=== PATIENT | male | born 1970 | race Hispanic/Latino ===

== ENCOUNTER 2017-04-01 11:27 | Observation (INO) | payer MEDICAID, SELFPAY ==
[2017-04-01 12:22] LABS: #Eosinphils 0.2 thou/uL (0.0-0.7); #Lymphocytes 1.2 thou/uL (1.20-3.40); #Monocytes 0.3 thou/uL (0.11-0.59); #Neutrophils 1.5 thou/uL (1.40-6.50); %Basophils 1.2 % (0.0-1.0); %Eosinophils 5.5 % (0.0-10.0); %Lymphocytes 37.7 % (21.0-51.0); %Monocytes 9.6 % (0.0-10.0); Hematocrit 19.4 % (42.0-52.0); Mean Platelet Volume 8.1 fL (7.4-10.4); Red Blood Cell (RBC) Count 2.02 mill/uL (4.70-6.10); White Blood Cell (WBC) Count 3.3 thou/uL (4.8-10.8)
[2017-04-01 12:34] LABS: ALT (SGPT) 55 U/L (8-55); AST (SGOT) 26 U/L (5-34); Alkaline Phosphatase 70 U/L (40-150); Anion Gap 28 mmol/L (10-20); Bilirubin, Total 0.6 mg/dL (0.2-1.2); Calcium 6.5 mg/dL (7.8-10.44); Carbon Dioxide 12 mmol/L (22-29); Chloride 98 mmol/L (98-107); Globulin 2.7 g/dL (2.4-3.5); Protein, Total 6.8 g/dL (6.0-8.3)
[2017-04-01 12:46] LABS: BUN (Urea Nitrogen) 141 mg/dL (8.9-20.6)
[2017-04-01 13:05] LABS: Calc. Creatinine Clearance 0 mL/min (70-130); Estimated GFR-MDRD 2
--- NOTE | 2017-04-01 15:47 | HP ---
PRIMARY CARE PHYSICIAN: Cat Yin M.D. REASON FOR ADMISSION: Uremia. HISTORY OF PRESENT ILLNESS: A 47-year-old male who has end-stage renal disease secondary t o focal segmental glomerulosclerosis, who is requiring dialysis, but unfortunately he is not able to get dialysis because of his immigrant status. He comes periodically in our emergency room to get d ialysis. At this time, he came to the ER after 20 days of his last dialysis. He complains of tingl ing and numbness sensation in his both feet. He feels nausea. He does feel pruritus and some poor appetite. He denies any chest pain or palpitation. He denies any shortness of breath. He is on ro om air in the emergency room. In the emergency room, he is hemodynamically stable. He came today b ecause he was feeling that he will need the dialysis. His last dialysis in our hospital was on 03/10/2017. REVIEW OF SYSTEMS: The following complete review of systems was negative, unless otherwise mentione d in the HPI or below: Constitutional: Weight loss or gain, ability to conduct usual activities. Skin: Rash, itching. Eyes: Double vision, pain. ENT/Mouth: Nose bleeding, neck stiffness, pain, tenderness. Cardiovascular: Palpitations, dyspnea on exertion, orthopnea. Respiratory: Shortness of breath, wheezing, cough, hemoptysis, fever or night sweats. Gastrointestinal: Poor appetite, abdominal pain, heartburn, nausea, vomiting, constipation, or diar hermelinda. Genitourinary: Urgency, frequency, dysuria, nocturia. Musculoskeletal: Pain, swelling. Neurologic/Psychiatric: Anxiety, depression. Allergy/Immunologic: Skin rash, bleeding tendency. Please see my HPI for pertinent positives and negatives. All other review of systems reviewed and n egative except as mentioned in the HPI. EMERGENCY ROOM COURSE: Reviewed. PAST MEDICAL HISTORY: End-stage renal disease, on hemodialysis, focal segmental glomerulosclerosis, dialysis noncompliance due to financial reasons, hypertension, history of enterococcal bacteremia s econdary to infected dialysis catheter, anemia of renal disease, pancytopenia, and secondary hyperpa rathyroidism of renal origin. PAST SURGICAL HISTORY: Hemodialysis catheter placement, kidney biopsy, hemodialysis catheter remova l due to infection and AV fistula. PAST PSYCHIATRIC HISTORY: Reviewed and negative. ALLERGIES: VANCOMYCIN. FAMILY HISTORY: No strong family history of premature coronary artery disease, stroke or cancer. N o family history of ESRD. SOCIAL HISTORY: The patient lives by himself at home. No history of tobacco, alcohol or illicit dr ug abuse. CURRENT HOME MEDICATIONS: Amlodipine 5 mg p.o. daily, Tums 1 gram p.o. q.i.d., ferrous sulfate 325 mg p.o. daily, and Nephro-Nika one tablet p.o. daily. PHYSICAL EXAMINATION: VITAL SIGNS: Currently, blood pressure 159/92, pulse 70, respiratory rate 18, temperature 97.6, and saturation 99% on room air, weight 65.3 kilograms. GENERAL: The patient is currently alert and awake, no obvious acute distress. HEENT: Head: Normocephalic and atraumatic. Eyes: Pupils round and reactive to light. Extraocula r muscles are intact. ENT: Oropharynx within normal limits. Moist mucous membranes. No oral lesi ons. No pharyngeal erythema, no exudates. NECK: Supple. Range of motion is normal. No meningeal signs of irritation. LUNGS: Clear to auscultation without any rhonchi or rales. CARDIAC: S1, S2 regular without any murmur. ABDOMEN: Soft, bowel sounds present, nontender, nondistended. No organomegaly, no mass, no suprapu bic tenderness. BACK: Unremarkable, no CVA tenderness. EXTREMITIES: Upper extremity passive movements of all joints are normal, dialysis shunt in the righ t forearm with good thrill and bruit. Lower extremity, no edema. Good peripheral pulsation. The p atient does have subjective numbness feeling in both lower extremities, especially in the ankle demarcus on. NEUROLOGIC: Nonfocal examination. Speech normal. The patient moves all 4 limbs. Plantar bilatera l flexor. SKIN: No skin rash. PSYCHIATRIC: Normal affect. HEMATOLOGICAL SYSTEM: No lymphadenopathy. SIGNIFICANT LABS: 1. EKG based on my review normal sinus rhythm within normal limits. 2. CBC: WBC 3.3, hemoglobin 6.9, and platelet 113. MCV is 95.8. BMP: Sodium 133, potassium 5.2, chloride 98, carbon dioxide 12, anion gap 28, BUN 141, creatinine greater than 25, glucose 92, and calcium 6.5. 3. LFT: AST 26, ALT 55, alkaline phosphatase 70, albumin 4.1. ASSESSMENT AND PLAN: 1. Uremia. 2. Elevated anion gap metabolic acidosis due to renal failure. 3. Mild hyponatremia and mild hyperkalemia due to end-stage renal disease. 4. Pancytopenia. 5. Severe anemia. 6. Hypertension. 7. End-stage renal disease on hemodialysis. 8. Focal segmental glomerulosclerosis. 9. Noncompliance with dialysis treatment because of financial reason. PLAN: Observation to medical floor. The patient will need blood transfusion with dialysis today. We will repeat CBC, renal function test tomorrow. We will give him PhosLo 1334 mg p.o. 3 times lala y while in hospital. We will continue amlodipine 5 mg p.o. daily, Nephro-Nika one tablet p.o. daily . This patient will need more frequent dialysis, deep venous thrombosis prophylaxis not needed. Ga strointestinal prophylaxis. Protonix 40 mg p.o. daily. The patient will need Procrit with dialysis . Regarding his peripheral neuropathy symptoms, I will start gabapentin 100 mg p.o. daily. Deep venous thrombosis prophylaxis not needed because we are expecting discharge in 24 hours. Gastr ointestinal prophylaxis, Protonix 40 mg p.o. daily. CODE STATUS: The patient is FULL CODE. Disposition plan after dialysis today and tomorrow, the patient will be discharged home. This patie nt will need more frequent dialysis than he is getting at this point.
[2017-04-01] MEDS ORDERED: Loratadine 10 MG TAB PO PRN (17:01)
[2017-04-01] MEDS ORDERED: Zolpidem Tartrate 5 MG TAB PO PRN (17:01)
[2017-04-01] MEDS ORDERED: Loperamide HCl 2 MG CAP PO PRN (17:01)
[2017-04-01] MEDS ORDERED: Acetaminophen 325 MG TAB PO PRN (17:01)
[2017-04-01] MEDS ORDERED: Artificial Tear Sol 15 ML BOT EA EYE PRN (17:01)
[2017-04-01] MEDS ORDERED: Diabetic Tussin 200 MG/10 ML UDCUP PO PRN (17:01)
[2017-04-01] MEDS ORDERED: Mag-Al 1200 mg/1200 mg/30 ML UDCUP PO PRN (17:01)
[2017-04-01] MEDS ORDERED: Sodium Chloride 0.65% Nasal 44 ML BOT EA NARE PRN (17:01)
[2017-04-01] MEDS ORDERED: Ondansetron HCl/PF 4 MG/2 ML Vial IVP PRN (17:01)
[2017-04-01] MEDS ORDERED: Ondansetron ODT 4 MG TAB PO PRN (17:01)
[2017-04-01] MEDS ORDERED: Senokot 8.6 MG TAB PO PRN (17:01)
[2017-04-01] MEDS ORDERED: Eucerin (Mineral Oil/Petrolatum,White) 30 gm Jar TOP PRN (17:01)
[2017-04-01] MEDS ORDERED: Milk Of Magnesia 30 ML UDCUP PO PRN (17:01)
[2017-04-01] MEDS ORDERED: Epoetin (ESRD) 10,000 UNITS/ML VIAL SC SCH (18:00)
[2017-04-01] MEDS ORDERED: FLU VACC QS2017-18 36 mo. & older 0.5 ML SYRINGE IM ONE (18:15)
[2017-04-01 18:20] VITALS: BMI 21.7
[2017-04-01] MEDS: Calcium Acetate 667 MG CAP PO SCH (18:24)
[2017-04-02 05:53] LABS: #Eosinphils 0.1 thou/uL (0.0-0.7); #Monocytes 0.3 thou/uL (0.11-0.59); #Neutrophils 1.7 thou/uL (1.40-6.50); %Basophils 0.7 % (0.0-1.0); %Eosinophils 4.6 % (0.0-10.0); %Lymphocytes 32.8 % (21.0-51.0); %Monocytes 9.3 % (0.0-10.0); Mean Platelet Volume 7.7 fL (7.4-10.4); Red Blood Cell (RBC) Count 2.69 mill/uL (4.70-6.10); White Blood Cell (WBC) Count 3.2 thou/uL (4.8-10.8)
[2017-04-02 06:36] LABS: Anion Gap 19 mmol/L (10-20); BUN (Urea Nitrogen) 57 mg/dL (8.9-20.6); BUN/Creatinine Ratio 3.82; Calc. Creatinine Clearance 6 mL/min (70-130); Calcium 7.9 mg/dL (7.8-10.44); Carbon Dioxide 24 mmol/L (22-29); Chloride 97 mmol/L (98-107); Estimated GFR-MDRD 4; Phosphorus 7.7 mg/dL (2.3-4.7)
[2017-04-02] MEDS ORDERED: Ferrous Sulfate 325 MG TAB PO SCH (08:00)
[2017-04-02] MEDS ORDERED: Folic Acid/Vit B Comp W-C PO SCH (09:00)
[2017-04-02] MEDS ORDERED: FLU VACC QS2017-18 36 mo. & older 0.5 ML SYRINGE IM ONE (09:00)
[2017-04-02] MEDS ORDERED: Gabapentin 100 MG CAP PO SCH (09:00)
[2017-04-02 11:15] VITALS: BP 133/93; TEMP 98.9
[2017-04-02] MEDS: Calcium Acetate 667 MG CAP PO SCH ×2 (11:40→11:44)
--- NOTE | 2017-04-02 15:04 | DIS ---
DATE OF ADMISSION: 04/01/2017 DATE OF DISCHARGE: 04/02/2017 CONDITION AT THE TIME OF DISCHARGE: Stable and improved. DISCHARGE DIAGNOSES: 1. Uremia. 2. Acute on chronic kidney insufficiency due to missed hemodialysis. 3. End-stage renal disease, on hemodialysis with noncompliance due to financial reason. 4. History of focal segmental glomerulosclerosis. 5. Hypertension. 6. History of enterococcal bacteremia due to infected dialysis catheter. 7. Anemia of chronic kidney disease. 8. Pancytopenia secondary to chronic kidney disease. 9. Secondary hyperparathyroidism of renal origin. PRIMARY CARE PHYSICIAN: Cat Yin M.D. PROCEDURES DONE IN THE HOSPITAL: 1. Hemodialysis back to back yesterday and today. 2. Transfusion of 1 unit of packed RBC. CONSULTATIONS: Nephrology, Joe Canela M.D. DISCHARGE MEDICATIONS: Folic acid daily, ferrous sulfate 325 mg daily, calcium carbonate 1000 mg q. i.d., amlodipine 5 mg daily, Neurontin 100 mg daily, and PhosLo t.i.d. ADMISSION HISTORY: Mr. Leon is a very pleasant 47-year-old male who comes to the emergency room on a repeated basis to get dialyzed when his symptoms are worse. He has end-stage renal disease and i s unfunded, and is unfortunately not on scheduled dialysis. This time, also he presented with compl aints of worsening weakness, leg cramps, numbness and tingling of his feet and poor appetite. He wa s hemodynamically stable at presentation; however, had florid uremia with BUN 141, creatinine greate r than 25, hemoglobin of 6.9 and platelet count of 113. His potassium was also elevated at 5.2. He also had elevated anion gap metabolic acidosis due to acute kidney insufficiency. He was admitted under observation status for emergent hemodialysis. He was restarted on his home medications and bl ood transfusion was ordered for him with dialysis upon admission. Please see admission history and physical for further details. HOSPITAL COURSE: Mr. Leon had back to back dialysis yesterday and this morning. He is feeling muc h better and is hemodynamically stable and is back to his baseline. I have instructed him to come t o the emergency room more frequently; otherwise, it will be fatal to wait for this man. At this jimmy e, he understands the situation and he will be discharged home today. Prescriptions were provided a s Neurontin was a new medication for him. I am not sure if he will be able to afford them or not. He is once again educated about compliance. At this time, I have seen and examined the patient prior to discharge. PHYSICAL EXAMINATION: VITAL SIGNS: Include temperature 98.9, pulse of 83, respirations 18, saturating 99% on room air and blood pressure 133/93. GENERAL: No acute distress. Awake, alert and oriented x3. CHEST: Clear to auscultation without any wheezing, rales or rhonchi. Rhythm and regular without an y murmur, rubs or gallops. ABDOMEN: Soft, nontender and nondistended with positive bowel sounds. EXTREMITIES: Free of any cyanosis, clubbing or edema. LABORATORY DATA: CBC shows WBC at 3.2; hemoglobin 8.8, which was 6.9 on presentation and platelet c ount of 118, which was 113 on presentation. His serum creatinine has improved to 14.9 prior to dial ysis. He has had one hour of dialysis after these labs. At this time, he is stable and will be discharged home and will return to the ER in the next 7-10 da ys. He is once again encouraged [place] hemod[place], but he is once again deferred at this time.
== END 2017-04-02 15:10 | disposition home or self-care (01) ==
LOC: ERS 11:27 → ONC 14:51
PROVIDERS: ADMIT Internal Medicine; ATTEND Internal Medicine
DX: N17.9 Acute kidney failure, unspecified (principal); I12.0 Hypertensive chronic kidney disease with stage 5 chronic kidney disease or end stage renal disease; N18.6 End stage renal disease; D63.1 Anemia in chronic kidney disease; N25.81 Secondary hyperparathyroidism of renal origin; Z88.8 Allergy status to other drugs, medicaments and biological substances; Z79.899 Other long term (current) drug therapy; Z91.15 Patient's noncompliance with renal dialysis; Z99.2 Dependence on renal dialysis
CPT/HCPCS: 36415; 36430; 80053; 80069; 85025; 86850; 86900; 86901; 87340; 90471; 90682; 90935; 93005; G0008; G0257; G0378; P9016; Q0162; Q2036; Q4081

== ENCOUNTER 2017-05-12 09:14 | Inpatient (IN) | payer MEDICAID, SELFPAY ==
[2017-05-12 09:51] LABS: #Eosinphils 0.3 thou/uL (0.0-0.7); #Lymphocytes 1.2 thou/uL (1.20-3.40); #Monocytes 0.2 thou/uL (0.11-0.59); %Basophils 1.3 % (0.0-1.0); %Eosinophils 6.9 % (0.0-10.0); %Lymphocytes 31.4 % (21.0-51.0); %Monocytes 5.8 % (0.0-10.0); Hematocrit 20.5 % (42.0-52.0); Mean Platelet Volume 7.5 fL (7.4-10.4); Red Blood Cell (RBC) Count 2.09 mill/uL (4.70-6.10); White Blood Cell (WBC) Count 3.7 thou/uL (4.8-10.8)
[2017-05-12] MEDS ORDERED: Heparin 10,000 UNITS/ 10 ML VIAL ONE (10:00)
[2017-05-12 10:12] LABS: ALT (SGPT) 15 U/L (8-55); AST (SGOT) 10 U/L (5-34); Alkaline Phosphatase 73 U/L (40-150); Anion Gap 29 mmol/L (10-20); BUN (Urea Nitrogen) 123 mg/dL (8.9-20.6); Bilirubin, Total 0.6 mg/dL (0.2-1.2); CK (CPK) 174 U/L (30-200); Calc. Creatinine Clearance 0 mL/min (70-130); Calcium 8.1 mg/dL (7.8-10.44); Carbon Dioxide 15 mmol/L (22-29); Chloride 99 mmol/L (98-107); Estimated GFR-MDRD 2; Globulin 2.9 g/dL (2.4-3.5); Lipase 83 U/L (8-78)
[2017-05-12 10:16] LABS: Troponin I 0.021 ng/mL (< 0.028)
--- NOTE | 2017-05-12 10:21 | RAD ---
PORTABLE UPRIGHT FRONTAL CHEST RADIOGRAPH: DATE: 05/12/17. COMPARISON: 03/09/17. HISTORY: Dyspnea. FINDINGS: No pneumothorax, pleural fluid, focal consolidation, or alveolar edema. Heart and mediastinal conto urs within normal limits. IMPRESSION: No acute findings. POS: [facility]
[2017-05-12 12:28] VITALS: BMI 23.3
[2017-05-12] MEDS ORDERED: FLU VACC QS2017-18 36 mo. & older 0.5 ML SYRINGE IM ONE (13:00)
[2017-05-12] MEDS ORDERED: Acetaminophen 325 MG TAB PO SCH (13:45)
[2017-05-12] MEDS ORDERED: Senokot 8.6 MG TAB PO PRN (16:15)
[2017-05-12] MEDS ORDERED: Acetaminophen 325 MG TAB PO PRN (16:15)
[2017-05-12] MEDS ORDERED: Ondansetron ODT 4 MG TAB PO PRN (16:15)
[2017-05-12] MEDS ORDERED: Ondansetron HCl/PF 4 MG/2 ML Vial IVP PRN (16:15)
[2017-05-12] MEDS ORDERED: Nitroglycerin 0.4 MG TAB (25 Tab Bottle) PO PRN (16:15)
[2017-05-12] MEDS ORDERED: hydrALAZINE 20 MG/ML VIAL SLOW IVP PRN (18:23)
--- NOTE | 2017-05-12 18:28 | PDOC.PN ---
- Subjective Encounter Start Date: 05/12/17 Encounter Start Time: 11:00 Patient seen and examined. - Objective Resuscitation Status: Resuscitation Status FULL:Full Resuscitation MAR Reviewed: Yes Vital Signs & Weight: Vital Signs (12 hours) Temp Pulse Resp BP Pulse Ox 05/12/17 17:30 98.5 F 85 18 165/82 H 98 05/12/17 12:30 97.9 F 73 18 100 05/12/17 12:20 97.9 F 73 18 150/81 H 100 Weight Weight 153 lb 1.6 oz I&O: 05/11/17 05/12/17 05/13/17 06:59 06:59 06:59 Output Total 1999 Balance -1999 Result Diagrams: 05/12/17 09:40 05/12/17 09:40 Radiology Reviewed by me: Yes (CXR - ?Pulm vas congestion) EKG Reviewed by me: Yes (SR)
--- NOTE | 2017-05-12 18:45 | HP ---
DATE OF ADMISSION: 05/12/2017 PRIMARY CARE PHYSICIAN: Dr. Yin. PRIMARY MICROBIOLOGY ANALYST: Dr. Joe Canela. CHIEF COMPLAINT: Uremic symptoms. HISTORY OF PRESENT ILLNESS: Patient is a 47-year-old male with end-stage renal disease on intermittent hemodialysis due to financial reason, presented to the emergency room with above compla ints. The patient's last underwent dialysis was approximately 1 week ago. Over the last 2-3 days, the pat ient developed gradual worsening shortness of breath along with malaise, generalized fatigue with de creased appetite. He also noticed bilateral lower extremity swelling. He felt nauseous; however, d enies any vomiting. No chest pain, palpitations, fever, chills or syncope reported. In the emergency room, initial vital signs showed temperature 98.1, respirations 18, pulse of 78, bl ood pressure of 138/79 with O2 saturation 100% on room air. His labs showed BUN of 123, creatinine of 21.1 with a hemoglobin of 6.9, hematocrit 20.5. Nephrology was notified for emergent hemodialysi s. PAST MEDICAL HISTORY: 1. Hypertension. 2. End-stage renal disease on hemodialysis on an as needed basis. 3. History of focal segmental glomerulosclerosis. 4. Anemia secondary to renal insufficiency. 5. Secondary hyperparathyroidism. PAST SURGICAL HISTORY: 1. Renal biopsy. 2. Dialysis access. ALLERGIES: Patient is allergic to VANCOMYCIN. CURRENT HOME MEDICATIONS: The patient takes amlodipine 5 mg a day and hydralazine 25 mg 4 times a d ay. FAMILY HISTORY: Negative for heart disease. SOCIAL HISTORY: Patient currently lives at home. No smoking, alcohol or drug use. REVIEW OF SYSTEMS: The following complete review of systems was negative, unless otherwise mentione d in the HPI or below: CONSTITUTIONAL: Weight loss or gain, ability to conduct usual activities. SKIN: Rash, itching. EYES: Double vision, pain. ENT/MOUTH: Nose bleeding, neck stiffness, pain, tenderness. CARDIOVASCULAR: Palpitations, dyspnea on exertion, orthopnea. RESPIRATORY: Shortness of breath, wheezing, cough, hemoptysis, fever or night sweats. GASTROINTESTINAL: Poor appetite, abdominal pain, heartburn, nausea, vomiting, constipation, or diar hermelinda. GENITOURINARY: Urgency, frequency, dysuria, nocturia. MUSCULOSKELETAL: Pain, swelling. NEUROLOGIC/PSYCHIATRIC: Anxiety, depression. ALLERGY/IMMUNOLOGIC: Skin rash, bleeding tendency. PHYSICAL EXAMINATION: VITAL SIGNS: As discussed above. GENERAL: A 47-year-old male in no significant distress at rest. HEENT: Head atraumatic, normocephalic. Sclerae are anicteric. Moist mucous membranes. No oral le lissy. NECK: Supple, no JVD appreciated. No carotid bruit. LUNGS: Showed scattered rales at bases. No wheezing or rhonchi. HEART: S1, S2 present. Regular rate and rhythm. No rubs, gallops or murmurs appreciated. ABDOMEN: Soft, nontender, bowel sounds present, no rebound or guarding. EXTREMITIES: 1+ edema in bilateral lower extremities. No calf tenderness. SKIN: Warm and dry. LYMPH NODES: No palpable lymph nodes in the neck. PERIPHERAL VASCULAR: Radial pulses palpable bilaterally. MUSCULOSKELETAL: No joint swelling or tenderness. SKIN: Warm and dry. LABORATORY FINDINGS: As discussed above. Potassium was 5 with sodium 138. LFTs in normal range. BNP 1365. IMPRESSION: 1. Volume overload secondary to noncompliance with hemodialysis. 2. Metabolic acidosis secondary to uremia. 3. Anemia secondary to renal insufficiency. 4. Hypertension. PLAN: The patient will be monitored in the telemetry unit. I discussed with Nephrology, Dr. Canela . Patient will receive hemodialysis along with Epogen due to anemia. Dr. Joe Canela recommende d checking hemoglobin in a.m. to transfuse 1 unit if his hemoglobin is less than 7 in a.m. Patient was counseled to arrange for outpatient hemodialysis. We will resume home medications once confirme d. Plan of care was discussed with the patient and he stated understanding. DISPOSITION: Probably in 24 hours.
[2017-05-12] MEDS: hydrALAZINE 25 MG TAB PO SCH (21:20)
[2017-05-12] MEDS: Famotidine 20 MG TAB PO SCH (21:20)
[2017-05-12] MEDS: Docusate 100 MG CAP PO SCH (21:20)
[2017-05-13 05:52] LABS: Hematocrit 20.7 % (42.0-52.0)
[2017-05-13 06:26] LABS: Anion Gap 15 mmol/L (10-20); BUN (Urea Nitrogen) 32 mg/dL (8.9-20.6); Calc. Creatinine Clearance 9 mL/min (70-130); Calcium 8.4 mg/dL (7.8-10.44); Carbon Dioxide 31 mmol/L (22-29); Chloride 97 mmol/L (98-107); Estimated GFR-MDRD 6
[2017-05-13] MEDS ORDERED: Amlodipine 5 MG TAB PO SCH (09:00)
--- NOTE | 2017-05-13 11:30 | DIS ---
DATE OF DISCHARGE: 05/13/2017 DISCHARGE DISPOSITION: Home. FOLLOWUP: 1. Follow up with primary care physician, Dr. Yin. 2. Follow up with primary waterworks chief engineer, Dr. Joe Canela. The patient was seen and examined on the day of discharge. Denies any new complaints. Patient is c urrently undergoing hemodialysis. BRIEF HOSPITAL COURSE: Patient is a 47-year-old male with end-stage renal disease on inter mittent hemodialysis due to financial reasons, presented to the hospital with uremic symptoms. Jagjit junior refer to the history and physical dated 05/12/2017 for further details. The patient was admitted to the hospital with the diagnosis of volume overload secondary to noncompl iance with hemodialysis. He received 2 hemodialysis sessions. Due to anemia, he received Epogen pe r Nephrology. He has been cleared by Nephrology for discharge. SIGNIFICANT LABS: Creatinine on admission was 21.18. It was 10.0 earlier today. Bicarbonate on ad mission was 15. FINAL DIAGNOSES: 1. Volume overload secondary to noncompliance with hemodialysis. 2. Metabolic acidosis secondary to uremia. 3. Anemia secondary to renal insufficiency. 4. Hypertension. Plan of care was discussed with the patient and he stated understanding.
[2017-05-13] MEDS: hydrALAZINE 25 MG TAB PO SCH ×2 (11:40→11:49)
[2017-05-13] MEDS: Docusate 100 MG CAP PO SCH (11:49)
[2017-05-13] MEDS: Famotidine 20 MG TAB PO SCH (11:49)
[2017-05-13 11:51] VITALS: BP 141/85
[2017-05-13 12:41] VITALS: TEMP 99.2
== END 2017-05-13 13:12 | disposition home or self-care (01) | DRG 640 ==
LOC: ERS 09:14 → 2NO 10:55
PROVIDERS: ADMIT Internal Medicine; ATTEND Internal Medicine
PROC: 5A1D70Z Performance of Urinary Filtration, Intermittent, Less than 6 Hours Per Day (ICD-10-PCS; principal; 2017-05-12)
DX: E87.70 Fluid overload, unspecified (principal); N18.6 End stage renal disease; E87.2 Acidosis; I12.0 Hypertensive chronic kidney disease with stage 5 chronic kidney disease or end stage renal disease; N25.81 Secondary hyperparathyroidism of renal origin; Z91.15 Patient's noncompliance with renal dialysis; D63.1 Anemia in chronic kidney disease; Z23 Encounter for immunization
CPT/HCPCS: 36415; 71010; 80048; 80053; 82553; 83690; 83880; 84484; 85014; 85018; 85025; 85049; 87340; 90471; 90682; 90935; 93005; 94760; G0008; G0257; J1644; Q2036

== ENCOUNTER 2020-01-15 09:54 | Inpatient (IN) | payer BC, OTHER ==
[2020-01-15 10:18] LABS: Actual Bicarbonate (HCO3a) 18.1 mEq/L (22-28); Base Excess (BEa) -7.5 mEq/L (-2.0 to +3.0); Hemoglobin (Hb) 12.2 g/dL (14.0-18.0); O2 Tension (PaO2), arterial 96.5 mmHg (80.0-100.0); pH, Arterial 7.31 (7.35-7.45)
[2020-01-15 10:19] LABS: Analyzer IN Cardio ER; Calcium, Ionized (arterial) 1.06 mmol/L (1.12-1.30); Potassium - ABG Lab 3.86 mmol/L (3.70-5.30); Puncture Site LRA
[2020-01-15] MEDS ORDERED: levETIRAcetam In NaCl (Iso-Os) 1,500 MG in Premix Bag 1 BAG IVPB SCH (10:30)
[2020-01-15 10:57] LABS: Bacteria/HPF None Seen HPF (None Seen); Bilirubin Negative (Negative); Blood, Urine 3+ (Negative); Clarity Clear (Clear); Glucose, Urine (Dipstick) 200 mg/dL (Negative); Ketone, Urine Negative (Negative); Leukocyte Negative Leu/uL (Negative); Nitrite Negative (Negative); Protein, Urine (Dipstick) 200 mg/dL (Neg-Trace); Specific Gravity, Urine 1.008 (1.002-1.036); Squamous Epithelial None Seen HPF (0-3); Urobilinogen Normal mg/dL (Less than 2); WBC/HPF 0-3 HPF (0-3); pH, Urine 8.5 (5.0-9.0)
[2020-01-15 11:06] LABS: Amphetamine Not Detected (NotDetected); Barbiturates Screen Not Detected (NotDetected); Benzodiazepine Screen Not Detected (NotDetected); Cocaine Metabolite Screen Not Detected (NotDetected); Medtox Control Line Valid? VALID (VALID); Medtox Reader # READER 4; Methadone Not Detected (NotDetected); Methamphetamine Not Detected (NotDetected); Opiate Screen Not Detected (NotDetected); Oxycodone Screen Not Detected (NotDetected); Phencyclidine (PCP) Not Detected (NotDetected); THC/Cannabinoid Screen Not Detected (NotDetected); Tricyclic Screen Not Detected (NotDetected)
[2020-01-15] MEDS ORDERED: Labetalol HCl 100 MG/20 ML VIAL ONE (11:13)
[2020-01-15 11:28] LABS: CKMB 1.5 ng/mL (0-6.6)
--- NOTE | 2020-01-15 11:32 | CT ---
CT BRAIN WITHOUT CONTRAST: Date: 01/15/2020 HISTORY: Seizure. FINDINGS: Comparison made with exam at 0547 hours from same date. There is contrast in the vascular system on the current exam from the CT pulmonary angiogram performe d earlier today at 0723 hours. No evidence of infarct, definite hemorrhage, mass, midline shift, or a bnormal extra-axial fluid collections are seen. No definite abnormal postcontrast enhancement is seen . The bony calvarium is intact. IMPRESSION: No definite evidence of acute intracranial process or mass. POS: [facility]
[2020-01-15] MEDS ORDERED: hydrALAZINE 25 MG TAB PO PRN (12:02)
[2020-01-15] MEDS ORDERED: Loperamide HCl 2 MG CAP PO PRN (12:03)
[2020-01-15] MEDS ORDERED: Ondansetron ODT 4 MG TAB PO PRN (12:03)
[2020-01-15] MEDS ORDERED: niCARdipine 20MG In NaCl 20 MG/200 ML BAG ONE (12:04)
[2020-01-15] MEDS ORDERED: Benzonatate 100 MG CAP PO PRN (12:06)
[2020-01-15] MEDS ORDERED: Melatonin 3 MG TAB PO PRN (12:06)
[2020-01-15] MEDS ORDERED: Docusate 100 MG CAP PO PRN (12:06)
[2020-01-15] MEDS ORDERED: diphenhydrAMINE 25 MG CAP PO PRN (12:06)
[2020-01-15] MEDS ORDERED: Lorazepam 2 MG/ML VIAL SLOW IVP PRN (12:10)
[2020-01-15] MEDS ORDERED: cloNIDine 0.3mg/24 Hour PATCH TD SCH ×2 (12:15→20:00)
[2020-01-15] MEDS ORDERED: Lidocaine Viscous Sol 2% 15 ml UD Cup SSW PRN (13:25)
[2020-01-15 15:08] LABS: Troponin I 0.072 ng/mL (< 0.028)
--- NOTE | 2020-01-15 17:11 | PDOC.HHP ---
Hospitalist HPI - History of Present Illness Seizure History of Present Illness: 50-year-old gentleman with past medical history of end-stage renal disease on hemodialysis, hypertension, and HLD presents with seizure type activity. Patient initially presented to outside facility with complaints of chest pain, was transferred to higher level of care and had seizure type activity en route which was aborted with Ativan by EMS. Upon arrival to [facility] the patient is postictal and unable to provide much meaningful history. When I find the patient in the emergency department he is able to tell me his name, he is able to tell me as having pain in the tongue in his [place] language of Romansh. The tongue has obvious bite pancho with some drying blood. The patient being confused is restrained for his safety. The patient having elevated blood pressure with systolic blood pressure greater than 200 at times, requiring IV titratable drip, for this he is being placed in the intensive care unit. Patient with end-stage renal disease on hemodialysis followed by Dr. Bradley, reportedly he has had a session of hemodialysis last Friday. As this is new seizure type activity we will consult neurology and look for an MRI of the brain for structural abnormalities that may explain seizure type activity. Patient did have a elevated D dimer for which a CT angiography the chest was performed, please see full report for details, there is no pulmonary embolism identified, though there is small pleural effusion and pericardial effusion consistent with the patient being on end-stage renal disease with hemodialysis. Will order and echocardiogram at this time. When patient is more stable will consider nuclear medicine stress testing to rule out ACS. Hospitalist ROS - Review of Systems ROS unobtainable: due to mental status Hospitalist History - Past Medical History Source: patient, old records Cardiac: reports: HTN, Hyperlipidemia RESIDENT SERVICES COORDINATOR: denies: CVA, Seizure Renal/: reports: Chronic renal failure - Past Surgical History Past Surgical History: reports: Other - Family History Family History: reports: hypertension - Social History Smoking Status: Unknown if ever smoked - Exam General Appearance: NAD. negative: awake alert Eye: PERRL ENT: normocephalic atraumatic, moist mucosa ENT - other findings: Mild bleeding of the tongue with scant dried blood around the mouth Neck: supple, symmetric Heart: RRR, no murmur, no gallops, no rubs Respiratory: CTAB, no wheezes, no rales, no ronchi, normal chest expansion, no tachypnea Gastrointestinal: soft, non-tender, no guarding, no rigidity Extremities: 1+ LE edema Skin: no lesions, no rashes Neurological: cranial nerve grossly intact, no focal deficits Neurological - other findings: follows simple commands. Musculoskeletal: generalized weakness Psychiatric: oriented to person, flat affect, somnolent Hospitalist Results - Labs Lab results: ABG pH 7.31 (7.35-7.45) L 01/15/20 10:15 ABG pCO2 37.0 mmHg (35.0-45.0) 01/15/20 10:15 ABG pO2 96.5 mmHg (80.0-100.0) 01/15/20 10:15 Ammonia 35 umol/L (18-72) 01/15/20 10:25 CK-MB (CK-2) 1.5 ng/mL (0-6.6) 01/15/20 10:19 Troponin I 0.072 ng/mL (< 0.028) H 01/15/20 14:34 Urine Ketones Negative mg/dL (Negative) 01/15/20 10:35 Urine Blood 3+ (Negative) A 01/15/20 10:35 Urine Nitrite Negative (Negative) 01/15/20 10:35 Ur Leukocyte Esterase Negative Rocco/uL (Negative) 01/15/20 10:35 Urine RBC 4-6 HPF (0-3) A 01/15/20 10:35 Urine WBC 0-3 HPF (0-3) 01/15/20 10:35 Ur Squamous Epith Cells None Seen HPF (0-3) 01/15/20 10:35 Urine Bacteria None Seen HPF (None Seen) 01/15/20 10:35 - Radiology Interpretation CT scan - chest Status: image reviewed by pa Hospitalist H&P A/P - Problem (1) Seizure Code(s): R56.9 - UNSPECIFIED CONVULSIONS Status: Acute (2) AMS (altered mental status) Code(s): R41.82 - ALTERED MENTAL STATUS, UNSPECIFIED Status: Acute (3) Tongue biting Code(s): K14.8 - OTHER DISEASES OF TONGUE Status: Acute (4) Anemia of renal disease Code(s): D63.1 - ANEMIA IN CHRONIC KIDNEY DISEASE Status: Chronic (5) ESRD (end stage renal disease) on dialysis Code(s): N18.6 - END STAGE RENAL DISEASE; Z99.2 - DEPENDENCE ON RENAL DIALYSIS Status: Chronic (6) Hypertension Code(s): I10 - ESSENTIAL (PRIMARY) HYPERTENSION Status: Chronic - Plan Plan: Plan: admit to the intensive care unit pulmonology/critical-care consultation, recommendations appreciated neurology consultation, recommendations appreciated nephrology consultation, recommendations appreciated Cardene drip for titratable blood pressure control restart home medications as able, particularly clonidine patch restart oral medications after bedside swallow has been passed MRI the brain CT head neg Utox neg, neg blood alcohol level antiepileptic drug, titrated as needed per neurology Ativan PRN seizure mildly elevated cardiac enzymes are likely secondary to impaired renal clearance echocardiogram ordered elevated D dimer, negative CT angiography of the chest for pulmonary embolism, see full report for details pericardial effusion likely secondary to end-stage renal disease pleural effusion may be secondary to volume overload continue other home medications is able blood sugar control dear prophylaxis DVT prophylaxis
[2020-01-15 17:35] LABS: Troponin I 0.083 ng/mL (< 0.028)
[2020-01-15] MEDS: Heparin 5,000 UNITS/ML VIAL SC SCH ×2 (19:51→20:29)
[2020-01-15] MEDS: Calcium Acetate 667 MG CAP PO SCH (19:52)
[2020-01-15] MEDS: niCARdipine 25 MG in Sodium Chloride 0.9% 250 ML 240 ML IVPB SCH (20:04)
[2020-01-15] MEDS: levETIRAcetam In NaCl (Iso-Os) 1,000 MG in Premix Bag 1 BAG IVPB SCH (20:29)
[2020-01-15] MEDS: Famotidine/PF 20 mg/2ml Vial SLOW IVP SCH (20:30)
[2020-01-15] MEDS ORDERED: Famotidine 20 MG TAB PO SCH (21:00)
[2020-01-16 04:11] LABS: Anion Gap 16 mmol/L (10-20); BUN (Urea Nitrogen) 49 mg/dL (8.9-20.6); Calc. Creatinine Clearance 8 mL/min (70-130); Carbon Dioxide 29 mmol/L (22-29); Chloride 97 mmol/L (98-107); Estimated GFR-MDRD 6; Glucose 100 mg/dL (70-105); Potassium 4.2 mmol/L (3.5-5.1); Sodium 138 mmol/L (136-145)
[2020-01-16 05:25] LABS: #Eosinphils 0.1 thou/uL (0.0-0.7); #Lymphocytes 1.4 thou/uL (1.20-3.40); #Monocytes 0.3 thou/uL (0.11-0.59); #Neutrophils 4.9 thou/uL (1.40-6.50); %Basophils 0.4 % (0.0-1.0); %Eosinophils 1.2 % (0.0-10.0); %Lymphocytes 20.5 % (21.0-51.0); %Monocytes 4.1 % (0.0-10.0); %Neutrophils 73.8 % (42.0-75.0); Mean Corpuscular HGB CONC 34.7 g/dL (32.0-36.0); Mean Corpuscular Hemoglobin 35.2 pg (27.0-31.0); Mean Platelet Volume 10.6 fL (7.4-10.4); Platelet Count 58 thou/uL (130-400); Platelet Morphology Comment Appears Decreased; RBC Distribution Width 12.3 % (11.5-14.5); Red Blood Cell (RBC) Count 2.84 mill/uL (4.70-6.10); White Blood Cell (WBC) Count 6.6 thou/uL (4.8-10.8)
[2020-01-16] MEDS: Famotidine/PF 20 mg/2ml Vial SLOW IVP SCH ×2 (08:13→20:19)
[2020-01-16] MEDS: Losartan 25 MG TAB PO SCH (08:14)
[2020-01-16] MEDS: Heparin 5,000 UNITS/ML VIAL SC SCH ×3 (08:14→20:05)
[2020-01-16] MEDS: Amlodipine 5 MG TAB PO SCH (08:14)
[2020-01-16] MEDS: Calcium Acetate 667 MG CAP PO SCH ×2 (08:14→17:04)
[2020-01-16] MEDS ORDERED: Prevnar 13-Val Conj/PF 0.5 ML SYRINGE IM ONE (09:00)
[2020-01-16] MEDS: levETIRAcetam In NaCl (Iso-Os) 1,000 MG in Premix Bag 1 BAG IVPB SCH ×2 (09:40→20:20)
[2020-01-16] MEDS: Labetalol HCl 100 MG/20 ML VIAL SLOW IVP PRN ×2 (09:40→12:22)
[2020-01-16] MEDS: Acetaminophen 325 MG TAB PO PRN ×2 (09:40→17:04)
[2020-01-16] MEDS ORDERED: cloNIDine 0.3mg/24 Hour PATCH TD SCH (12:00)
--- NOTE | 2020-01-16 12:26 | PRG ---
DATE OF SERVICE: 01/16/2020 SUBJECTIVE: Mr. Oscar is a 50-year-old male with ESRD from hypertensive nephropathy and was initially seen at [facility] for chest pain. He was transferred to [facility] for further management. During the transfer, he developed seizure activity. He was given Ativan. CT scan of the head showed no acute intracranial abnormality. We are now being consulted for management of his ESRD. There is no indication for any emergent hemodialysis today. The patient is feeling better. He denies any current chest pain, but the chest pain he had experienced the day before was more pleuritic in nature. Please note, this patient did undergo a CT of the chest on January 15, 2020, which showed no pulmonary embolism, did show pericardial effusion, bilateral pleural effusions. OBJECTIVE: VITAL SIGNS: Blood pressure is currently noted at 108/87 and prior to that it was 187/100. Please note, his clonidine patch was restarted. GENERAL: He is noted to be awake, comfortable, not in distress. SKIN: Adequate turgor. HEENT: He has pinkish conjunctivae. Anicteric sclerae. No neck mass. No carotid bruits. No JVD. CHEST: No deformities. LUNGS: Clear breath sounds. No wheezing. No crackles. HEART: Normal sinus rhythm. No murmur. No gallops. No rubs. ABDOMEN: Globular, soft, and nontender. No masses. EXTREMITIES: No edema. No deformities. MEDICATIONS: Medications of January 15, 2020, was reviewed. LABORATORY DATA: Laboratories of January 16, 2020, white count 6.6, hemoglobin 10. Sodium 138, potassium 4.2, chloride 97, carbon dioxide 29, BUN 49, creatinine 9.99, glucose 100, and calcium 8.0. ASSESSMENT AND PLAN: 1. Labile hypertension. The patient is currently on nicardipine drip. He is also on the following BP medications, losartan at 100 mg daily, hydralazine 100 mg p.o. t.i.d., clonidine TTS-3 patch, and amlodipine at 5 mg daily. 2. He was previously on minoxidil, it has helped control his blood pressure well. However, he did develop congestive heart failure and some degree of pericardial effusion and we felt that this could be related to his minoxidil. Please also note the renal ultrasound with Doppler was ordered for this patient, which showed no evidence of renal artery stenosis. Please note that we can restart him on a lower dose of minoxidil at 5 mg tablet at bedtime and we will attempt to maximize fluid removal with his dialysis. 3. End stage renal disease, stable. We will continue current Friday, Friday, and Friday hemodialysis regimen. Review of the last Kt/V suggests he is adequately dialyzed with the current hemodialysis regimen. 4. New onset seizure-currently started on anti-seizure medications. He is currently on levetiracetam 1000 mg b.i.d. 5. Overall agree with current management. Recheck basic metabolic and CBC in a.m. Job ID: [id number]
[2020-01-16] MEDS ORDERED: Carvedilol 3.125 MG TAB PO SCH (13:30)
[2020-01-16] MEDS: hydrALAZINE 25 MG TAB PO SCH ×2 (13:53→20:18)
--- NOTE | 2020-01-16 13:55 | MRI ---
MRI BRAIN WITHOUT CONTRAST: History: New onset seizure. FINDINGS: Correlation is made with the previous day's CT scan. No restricted diffusion is identified. There is vasogenic edema in the parietooccipital lobes bilater ally, as well as around the superior frontal sulcus on either side. The ventricular size is appropria te. No acute infarct, hemorrhage, midline shift or abnormal extraaxial fluid collections seen. The ve ntricular size is normal and the basilar cisterns patent. There is mucosal disease in the left [place] sinus. IMPRESSION: Findings are consistent with posterior reversible encephalopathy syndrome (PRES)/acute hypertensive e ncephalopathy. POS: [facility]
--- NOTE | 2020-01-16 13:59 | CON ---
DATE OF CONSULTATION: 01/15/2020 CONSULTING PHYSICIAN: Hospitalist Service. IMPRESSION: 1. New-onset seizure. 2. Normal CT scan of the brain. PLAN: Continue Keppra 500 mg twice a day. HISTORY OF PRESENT ILLNESS: Mr. Edward Oscar is a 50-year-old man with history of hypertension and end-stage renal disease, has been on hemodialysis. He had two witnessed generalized tonoclonic seizures. He was given some Ativan. He is admitted to the intensive care unit. His CT of the brain with contrast was unremarkable. CT scan of the chest was also negative for pulmonary embolus. His lab work was only notable for his renal failure. His COVID test was negative. He is complaining of some soreness in his tongue and muscle aches throughout the upper body. He has no past history of seizures. ALLERGIES: VANCOMYCIN. SOCIAL HISTORY: No illicit drug use. FAMILY HISTORY: Noncontributory. MEDICATIONS: List was reviewed. REVIEW OF SYSTEMS: Ten-system review of systems is otherwise negative. PHYSICAL EXAMINATION: VITAL SIGNS: Blood pressure 108/87, pulse 80 and a sinus rhythm, and saturations 100%. HEENT: Pupils are equal and reactive. Conjunctivae are clear. Oropharynx clear. NECK: Supple. No lymphadenopathy. CHEST: Clear. ABDOMEN: Soft and nontender. SKIN: Clear. EXTREMITIES: No cyanosis or edema. NEUROLOGIC: He is alert and appropriate. His speech is fluent and clear. He has no focal deficits. There are no abnormal movements. IMAGING AND LAB WORK: Reviewed. SUMMARY: A 50-year-old man on dialysis, who had a witnessed generalized seizure. I agree with current management. Job ID: [id number]
--- NOTE | 2020-01-16 15:21 | PDOC.HOSPP ---
- Subjective Subjective: Seen and examined. Significantly improve from yesterday. He is alert and oriented times. He is off restraints. He is having some muscular and back pain from seizure. His tongue still has bite pancho and pain associated though it is no longer bleeding. Patient's blood pressure has been difficult control and we are adjusting medications. He did well with swallowing evaluation and we are advancing diet. - Objective Vital Signs & Weight: Vital Signs (12 hours) Temp Pulse BP Pulse Ox 01/16/20 13:53 80 186/106 H 01/16/20 12:22 80 187/104 H 01/16/20 12:00 98.5 F 01/16/20 10:20 80 188/96 H 01/16/20 09:40 80 178/92 H 01/16/20 08:14 80 173/95 H 01/16/20 08:00 98.5 F 100 01/16/20 04:00 98.9 F Weight Weight 143 lb 8.335 oz Most Recent Monitor Data Heart Rate from ECG 79 NIBP 180/96 NIBP BP-Mean 113 Respiration from ECG 16 SpO2 100 I&O: 01/15/20 01/16/20 01/17/20 06:59 06:59 06:59 Intake Total 398 800 Output Total 0 100 Balance 398 700 Result Diagrams: 01/16/20 03:21 01/16/20 03:21 Radiology Reviewed by me: Yes Hospitalist ROS - Review of Systems All other systems reviewed; all pertinent +/- noted in HPI/Subj - Medication Medications: Active Medications Generic Name Dose Route Start Last Admin Trade Name Freq PRN Reason Stop Dose Admin Acetaminophen 650 mg 01/15/20 12:03 01/16/20 09:40 Tylenol PO 650 mg Q4H PRN Administration Headache/Fever/Mild Pain (1-3) Amlodipine Besylate 5 mg 01/16/20 09:00 01/16/20 08:14 Norvasc PO 5 mg DAILY JUAN A Administration Calcium Acetate 667 mg 01/15/20 17:00 01/16/20 08:14 Phoslo PO 667 mg BID-WM JUAN A Administration Clonidine 0.3 mg 01/16/20 12:00 01/16/20 11:26 Tjjdtfda-Wep-1 TD 0.3 mg Q7D JUAN A Administration Famotidine 20 mg 01/15/20 21:00 01/16/20 08:13 Pepcid SLOW IVP 20 mg BID JUAN A Administration Heparin Sodium (Porcine) 5,000 units 01/15/20 15:00 01/16/20 08:14 Heparin SC Not Given TID JUAN A Hydralazine HCl 100 mg 01/16/20 15:00 01/16/20 13:53 Apresoline PO 100 mg TID JUAN A Administration Levetiracetam 1,000 mg/ Device 100 mls @ 200 mls/hr 01/15/20 21:00 01/16/20 09:40 IVPB 100 mls BID JUAN A Administration Nicardipine HCl 25 mg/ Sodium 250 mls @ 0 mls/hr 01/15/20 20:00 01/15/20 20: 04 Chloride IVPB 250 mls INF JUAN A Administration Protocol Titrate Labetalol HCl 10 mg 01/15/20 12:06 01/16/20 12:22 Normodyne SLOW IVP 10 mg Q4H PRN Administration SBP Greater Than 180 Losartan Potassium 100 mg 01/16/20 09:00 01/16/20 08:14 Cozaar PO 100 mg DAILY JUAN A Administration - Exam General Appearance: NAD, awake alert Eye: PERRL ENT: normocephalic atraumatic, moist mucosa ENT - other findings: tongue bite from seizure Neck: supple, symmetric, no lymphadenopathy Heart: RRR, no murmur, no gallops, no rubs Respiratory: CTAB, no wheezes, no rales, no ronchi, normal chest expansion, no tachypnea Gastrointestinal: soft, non-tender, non-distended, normal bowel sounds, no guarding, no rigidity Extremities: no edema Skin: no lesions, no rashes Neurological: cranial nerve grossly intact, no focal deficits Musculoskeletal: generalized weakness Psychiatric: normal affect, A&O x 3 Hosp A/P (1) Seizure Code(s): R56.9 - UNSPECIFIED CONVULSIONS Status: Acute (2) AMS (altered mental status) Code(s): R41.82 - ALTERED MENTAL STATUS, UNSPECIFIED Status: Acute (3) Tongue biting Code(s): K14.8 - OTHER DISEASES OF TONGUE Status: Acute (4) Anemia of renal disease Code(s): D63.1 - ANEMIA IN CHRONIC KIDNEY DISEASE Status: Chronic (5) ESRD (end stage renal disease) on dialysis Code(s): N18.6 - END STAGE RENAL DISEASE; Z99.2 - DEPENDENCE ON RENAL DIALYSIS Status: Chronic (6) Hypertension Code(s): I10 - ESSENTIAL (PRIMARY) HYPERTENSION Status: Chronic - Plan Plan: intensive care unit critical-care consultation, recommendations appreciated neurology consultation, recommendations appreciated nephrology consultation, recommendations appreciated cardene drip for titratable blood pressure control Adjusting home blood pressure medications passed swallow evaluation, advancing diet MRI the brain demonstrating posterior reversible encephalopathy syndrome which fits the picture of his uncontrolled blood pressure next line CT head negative urinary toxicology negative blood-alcohol level negative antiepileptic drug, adjust per neurology as needed Ativan PRN seizure seizure precautions mildly elevated cardiac enzymes may be secondary to impaired renal clearance and profound hypertension echocardiogram elevated D dimer, negative CT angiography of the chest for pulmonary embolism, please see full report for details pericardial effusion may be secondary to end-stage renal disease pleural fusions may be secondary volume overload COVID negative blood pressure control blood sugar control G.I. prophylaxis DVT prophylaxis
[2020-01-16] MEDS: niCARdipine 25 MG in Sodium Chloride 0.9% 250 ML 240 ML IVPB SCH ×2 (18:08→23:46)
[2020-01-16] MEDS: Ondansetron PF 4 MG/2 ML Vial IVP PRN (18:11)
[2020-01-17] MEDS: hydrALAZINE 25 MG TAB PO SCH ×3 (07:46→21:14)
[2020-01-17] MEDS: Carvedilol 3.125 MG TAB PO SCH ×2 (07:47→17:46)
--- NOTE | 2020-01-17 08:11 | CON ---
DATE OF CONSULTATION: HISTORY OF PRESENT ILLNESS: Celestina Leon is a 50-year-old gentleman with end-stage renal disease, who presented to the hospital in [place] with symptoms of not feeling well, chest pain. He is confused. He has end-stage renal disease, being dialyzed 3 times a week by local automotive diagnostic technician. He then proceeded to have what appears to be seizure activity and was given Ativan. Blood sugar is 120. As noted, this morning in the ICU, he is awake, alert, and responsive. He says he has had a headache, but otherwise he does not recollect the events. Nonsmoker. Apparently, nondrinker. PAST MEDICAL HISTORY: 1. Hypertension. 2. Renal failure. 3. Glomerulonephritis. PAST SURGICAL HISTORY: Previous surgeries, access. HOME MEDICATIONS: Include; 1. Hydralazine 100. 2. Catapres 0.3. 3. Terazosin 1. 4. Procardia. 5. Metoprolol. 6. Losartan. 7. Calcium. 8. Amlodipine. ALLERGIES: VANCOMYCIN. REVIEW OF SYSTEMS: Otherwise, 10-point negative. PHYSICAL EXAMINATION: GENERAL: He is awake, alert, responsive. VITAL SIGNS: Pulse 80, blood pressure 173/95, sats 100%, . CHEST: No wheezing. No crackles. CARDIAC: Normal S1, S2. No gallops. ABDOMEN: No masses. LABORATORY DATA: White count 6000, H and H of 10 and 28, platelet count is low at 58. His creatinine is elevated, BUN is elevated. IMPRESSION: 1. History of seizure activity. Normal CT of head. 2. Renal failure, 3 times a week dialysis. 3. Hypertension. 4. Coronavirus negative. PLAN: At this stage, Pulmonary has nothing to offer. He can probably be transferred out of the ICU once he has been seen by Cardiology. Consultation note, 70 minutes, 50% direct patient care. Job ID: [id number]
[2020-01-17] MEDS: Famotidine/PF 20 mg/2ml Vial SLOW IVP SCH (08:26)
[2020-01-17] MEDS: Calcium Acetate 667 MG CAP PO SCH ×2 (08:26→17:47)
[2020-01-17] MEDS: Heparin 5,000 UNITS/ML VIAL SC SCH ×3 (08:26→21:13)
[2020-01-17] MEDS: levETIRAcetam In NaCl (Iso-Os) 1,000 MG in Premix Bag 1 BAG IVPB SCH ×2 (08:32→21:14)
--- NOTE | 2020-01-17 08:59 | PRG ---
DATE OF SERVICE: 01/17/2020 SUBJECTIVE: Mr. Oscar is a 50-year-old male with ESRD and was admitted for chest pain/seizure disorder. He underwent a brain MRI on January 16, 2020, which showed reversible encephalopathy syndrome/acute hypertensive encephalopathy. No masses were noted. Initial CT scan of the brain was within normal. He voices no new complaints today. We are following him up for his hemodialysis management. OBJECTIVE: VITAL SIGNS: Blood pressure is 178/94, heart rate 73, O2 saturation 100%. GENERAL: The patient is awake, alert, comfortable, not in distress. SKIN: Adequate turgor. HEENT: He has pinkish conjunctivae. Anicteric sclerae. NECK: No neck mass. No carotid bruits. No JVD. CHEST: No deformities. LUNGS: Clear breath sounds. HEART: Normal sinus rhythm. No murmur. No gallops or rubs. ABDOMEN: Globular, soft, nontender. No masses. EXTREMITIES: No edema. MEDICATIONS: Medications of January 17, 2020, was reviewed. LABORATORY DATA: Laboratories of January 16, 2020, was also reviewed. ASSESSMENT AND PLAN: 1. Labile hypertension-we will restart the patient on minoxidil 5 mg tablet once a day. The side effect of this minoxidil last time was due to development of pulmonary edema/pericardial effusion. Our plan is to max out fluid removal with dialysis. 2. End-stage renal disease-I have scheduled him for hemodialysis today. We will max out fluid removal as tolerated with the patient. Attempt 3 to 4 L of fluid removal. 3. New onset seizure disorder, currently on levetiracetam. Continue current management. 4. Recheck basic metabolic and CBC in a.m. Job ID: [id number]
--- NOTE | 2020-01-17 09:18 | PRG ---
DATE OF SERVICE: 01/17/2020 SUBJECTIVE: This morning, he is awake, responsive. OBJECTIVE: VITAL SIGNS: Blood pressure 178/94. sats 97% on room air, pulse 75. CHEST: Decreased breath sounds. No wheezing. CARDIAC: Normal S1, S2. ABDOMEN: No masses. IMPRESSION: 1. Chronic renal failure. 2. Hypertension. 3. Seizure disorder. His MRI showed PRES syndrome, posterior reversible encephalopathy. PLAN: He can be transferred out of the ICU. Okay with primary care physician. Pulmonary will follow at a distance. Job ID: [id number]
[2020-01-17] MEDS ORDERED: cloNIDine 0.1 MG TAB PO SCH (11:45)
[2020-01-17] MEDS: Amlodipine 5 MG TAB PO SCH (11:46)
[2020-01-17] MEDS: Losartan 25 MG TAB PO SCH (11:47)
[2020-01-17] MEDS: hydrALAZINE 20 MG/ML VIAL SLOW IVP PRN ×2 (11:49→18:13)
[2020-01-17] MEDS: Acetaminophen 325 MG TAB PO PRN ×2 (12:01→17:46)
[2020-01-17] MEDS: Ondansetron PF 4 MG/2 ML Vial IVP PRN (12:06)
--- NOTE | 2020-01-17 13:38 | PDOC.HOSPP ---
- Subjective Encounter Date: 01/17/20 Subjective: NEUROLOGY PROGRESS NOTE Patient alert, awake and following commands . No acute events overnight. - Objective Vital Signs & Weight: Vital Signs (12 hours) Temp Pulse BP Pulse Ox 01/17/20 12:00 200/113 H 01/17/20 11:49 75 196/113 H 01/17/20 11:46 75 196/113 H 01/17/20 07:50 99 01/17/20 07:46 75 170/92 H 01/17/20 07:00 98.6 F 01/17/20 04:00 98.6 F Weight Weight 143 lb 8.335 oz Most Recent Monitor Data Heart Rate from ECG 78 NIBP 177/105 NIBP BP-Mean 116 Respiration from ECG 16 SpO2 100 I&O: 01/16/20 01/17/20 01/18/20 06:59 06:59 06:59 Intake Total 398 1486 631.1 Output Total 0 150 Balance 398 1336 631.1 Result Diagrams: 01/16/20 03:21 01/16/20 03:21 Radiology Reviewed by me: Yes EKG Reviewed by me: Yes Hospitalist ROS - Review of Systems Constitutional: denies: fever, chills, sweats, weakness, malaise, other Eyes: denies: pain, vision change, conjunctivae inflammation, eyelid inflammation, redness, other ENT: denies: ear pain, ear discharge, nose pain, nose discharge, nose congestion , mouth pain, mouth swelling, throat pain, throat swelling, other Respiratory: denies: cough, dry, shortness of breath, hemoptysis, SOB with excertion, pleuritic pain, sputum, wheezing, other Cardiovascular: denies: chest pain, palpitations, orthopnea, paroxysmal noc. dyspnea, edema, light headedness, other Gastrointestinal: denies: nausea, vomiting, abdominal pain, diarrhea, constipation, melena, hematochezia, other Genitourinary: denies: dysuria, frequency, incontinence, hematuria, retention, other Musculoskeletal: denies: neck pain, shoulder pain, arm pain, back pain, hand pain, leg pain, foot pain, other Skin: denies: rash, lesions, nader, bruising, other Neurological: reports: confusion, seizures. denies: weakness, numbness, incoordination, change in speech, other - Medication Medications: Active Medications Generic Name Dose Route Start Last Admin Trade Name Freq PRN Reason Stop Dose Admin Acetaminophen 650 mg 01/15/20 12:03 01/17/20 12:01 Tylenol PO 650 mg Q4H PRN Administration Headache/Fever/Mild Pain (1-3) Amlodipine Besylate 5 mg 01/16/20 09:00 01/17/20 11:46 Norvasc PO 5 mg DAILY JUAN A Administration Calcium Acetate 667 mg 01/15/20 17:00 01/17/20 08:26 Phoslo PO 667 mg BID-WM JUAN A Administration Carvedilol 3.125 mg 01/17/20 08:00 01/17/20 07:47 Coreg PO 3.125 mg BID-WM JUAN A Administration Clonidine 0.3 mg 01/16/20 12:00 01/16/20 11:26 Wpsadbgj-Aom-5 TD 0.3 mg Q7D JUAN A Administration Clonidine 0.1 mg 01/17/20 11:45 01/17/20 12:00 Catapres PO 01/17/20 13:45 0.1 mg NOW JUAN A Administration Heparin Sodium (Porcine) 5,000 units 01/15/20 15:00 01/17/20 08:26 Heparin SC 5,000 units TID JUAN A Administration Hydralazine HCl 10 mg 01/15/20 12:06 01/17/20 11:49 Apresoline SLOW IVP 10 mg Q4H PRN Administration Hypertension Hydralazine HCl 100 mg 01/16/20 15:00 01/17/20 07:46 Apresoline PO 100 mg TID JUAN A Administration Levetiracetam 1,000 mg/ Device 100 mls @ 200 mls/hr 01/15/20 21:00 01/17/20 08:32 IVPB 100 mls BID JUAN A Administration Nicardipine HCl 25 mg/ Sodium 250 mls @ 0 mls/hr 01/15/20 20:00 01/16/20 23: 46 Chloride IVPB 250 mls INF JUNA A Administration Protocol Titrate Labetalol HCl 10 mg 01/15/20 12:06 01/16/20 12:22 Normodyne SLOW IVP 10 mg Q4H PRN Administration SBP Greater Than 180 Losartan Potassium 100 mg 01/16/20 09:00 01/17/20 11:47 Cozaar PO 100 mg DAILY JUAN A Administration Ondansetron HCl 4 mg 01/15/20 12:03 01/17/20 12:06 Zofran IVP 4 mg Q6H PRN Administration Nausea/Vomiting - Exam General Appearance: awake alert Eye: PERRL ENT: normocephalic atraumatic Neck: supple Heart: RRR Respiratory: CTAB Gastrointestinal: soft Extremities: no cyanosis Skin: normal turgor Neurological: no new deficit Musculoskeletal: generalized weakness Psychiatric: A&O x 3 Hosp A/P (1) AMS (altered mental status) Code(s): R41.82 - ALTERED MENTAL STATUS, UNSPECIFIED Status: Acute (2) Seizure Code(s): R56.9 - UNSPECIFIED CONVULSIONS Status: Acute (3) Anemia in ESRD (end-stage renal disease) Code(s): N18.6 - END STAGE RENAL DISEASE; D63.1 - ANEMIA IN CHRONIC KIDNEY DISEASE Status: Acute (4) Uremia Code(s): N19 - UNSPECIFIED KIDNEY FAILURE Status: Acute - Plan PT/OT 50 year old with ESRD and hypertensive emergency presented with new onset seizure. No family history or apparent risk factors for seizures. MRI brain reviewed which is negative for seizure activity. EEG pending. Neurochecks every 4 hours. PT/OT Continue medical management per primary team. If MRI brain and EEG negative, no need for anticonvulsant. Plan discussed with the patient and the primary attending Dr. Tariq.
--- NOTE | 2020-01-17 15:51 | PDOC.HOSPP ---
- Subjective Subjective: Seen and examined on hemodialysis. Patient doing significantly better. No seizure activity. No episodes of altered mental status. His blood pressure is doing better, off cardene drip. I discussed the case with briefly with neurology who recommends EEG. He is stable for downgrade now that he is off titratable drips. - Objective Vital Signs & Weight: Vital Signs (12 hours) Temp Pulse BP Pulse Ox 01/17/20 14:18 75 169/103 H 01/17/20 14:00 98.7 F 01/17/20 12:00 200/113 H 01/17/20 11:49 75 196/113 H 01/17/20 11:46 75 196/113 H 01/17/20 07:50 99 01/17/20 07:46 75 170/92 H 01/17/20 07:00 98.6 F 01/17/20 04:00 98.6 F Weight Weight 143 lb 8.335 oz Most Recent Monitor Data Heart Rate from ECG 84 NIBP 169/103 NIBP BP-Mean 119 Respiration from ECG 16 SpO2 100 I&O: 01/16/20 01/17/20 01/18/20 06:59 06:59 06:59 Intake Total 398 1486 871.1 Output Total 0 150 Balance 398 1336 871.1 Result Diagrams: 01/16/20 03:21 01/16/20 03:21 Radiology Reviewed by me: Yes Hospitalist ROS - Review of Systems All other systems reviewed; all pertinent +/- noted in HPI/Subj - Medication Medications: Active Medications Generic Name Dose Route Start Last Admin Trade Name Freq PRN Reason Stop Dose Admin Acetaminophen 650 mg 01/15/20 12:03 01/17/20 12:01 Tylenol PO 650 mg Q4H PRN Administration Headache/Fever/Mild Pain (1-3) Amlodipine Besylate 5 mg 01/16/20 09:00 01/17/20 11:46 Norvasc PO 5 mg DAILY JUAN A Administration Calcium Acetate 667 mg 01/15/20 17:00 01/17/20 08:26 Phoslo PO 667 mg BID-WM JUAN A Administration Carvedilol 3.125 mg 01/17/20 08:00 01/17/20 07:47 Coreg PO 3.125 mg BID-WM JUAN A Administration Clonidine 0.3 mg 01/16/20 12:00 01/16/20 11:26 Uszhvlhd-Gln-8 TD 0.3 mg Q7D JUAN A Administration Heparin Sodium (Porcine) 5,000 units 01/15/20 15:00 01/17/20 14:20 Heparin SC 5,000 units TID JUAN A Administration Hydralazine HCl 10 mg 01/15/20 12:06 01/17/20 11:49 Apresoline SLOW IVP 10 mg Q4H PRN Administration Hypertension Hydralazine HCl 100 mg 01/16/20 15:00 01/17/20 14:18 Apresoline PO 100 mg TID JUAN A Administration Levetiracetam 1,000 mg/ Device 100 mls @ 200 mls/hr 01/15/20 21:00 01/17/20 08:32 IVPB 100 mls BID JUAN A Administration Nicardipine HCl 25 mg/ Sodium 250 mls @ 0 mls/hr 01/15/20 20:00 01/16/20 23: 46 Chloride IVPB 250 mls INF JUAN A Administration Protocol Titrate Labetalol HCl 10 mg 01/15/20 12:06 01/16/20 12:22 Normodyne SLOW IVP 10 mg Q4H PRN Administration SBP Greater Than 180 Lidocaine HCl 15 ml 01/15/20 13:25 01/17/20 14:20 Xylocaine 2% Viscous SSW 15 ml Q4H PRN Administration Mouth Irritation Losartan Potassium 100 mg 01/16/20 09:00 01/17/20 11:47 Cozaar PO 100 mg DAILY JUAN A Administration Ondansetron HCl 4 mg 01/15/20 12:03 01/17/20 12:06 Zofran IVP 4 mg Q6H PRN Administration Nausea/Vomiting - Exam General Appearance: NAD, awake alert Eye: PERRL ENT: normocephalic atraumatic, moist mucosa Neck: supple, symmetric, no lymphadenopathy Heart: RRR, no murmur, no gallops, no rubs Respiratory: CTAB, no wheezes, no rales, no ronchi, normal chest expansion Gastrointestinal: soft, non-tender, no guarding, no rigidity Extremities: no edema Skin: no lesions, no rashes Neurological: cranial nerve grossly intact, no focal deficits Musculoskeletal: generalized weakness Psychiatric: A&O x 3 Hosp A/P (1) Seizure Code(s): R56.9 - UNSPECIFIED CONVULSIONS Status: Acute (2) AMS (altered mental status) Code(s): R41.82 - ALTERED MENTAL STATUS, UNSPECIFIED Status: Acute (3) Tongue biting Code(s): K14.8 - OTHER DISEASES OF TONGUE Status: Acute (4) Anemia of renal disease Code(s): D63.1 - ANEMIA IN CHRONIC KIDNEY DISEASE Status: Chronic (5) ESRD (end stage renal disease) on dialysis Code(s): N18.6 - END STAGE RENAL DISEASE; Z99.2 - DEPENDENCE ON RENAL DIALYSIS Status: Chronic (6) Hypertension Code(s): I10 - ESSENTIAL (PRIMARY) HYPERTENSION Status: Chronic - Plan Plan: intensive care unit, stable for D/g to Med/tel critical-care consultation, recommendations appreciated neurology consultation, recommendations appreciated nephrology consultation, recommendations appreciated D/c cardene drip for titratable blood pressure control Adjusting home blood pressure medications, adding minoxidil Will need EEG antiepileptic drug, adjust per neurology as needed Ativan PRN seizure seizure precautions passed swallow evaluation, advancing diet MRI the brain demonstrating posterior reversible encephalopathy syndrome which fits the picture of his uncontrolled blood pressure next line CT head negative urinary toxicology negative blood-alcohol level negative mildly elevated cardiac enzymes may be secondary to impaired renal clearance and profound hypertension echocardiogram elevated D dimer, negative CT angiography of the chest for pulmonary embolism, please see full report for details pericardial effusion may be secondary to end-stage renal disease pleural fusions may be secondary volume overload COVID negative blood pressure control blood sugar control G.I. prophylaxis DVT prophylaxis
[2020-01-18] MEDS: hydrALAZINE 20 MG/ML VIAL SLOW IVP PRN ×2 (01:21→06:45)
[2020-01-18] MEDS: Labetalol HCl 100 MG/20 ML VIAL SLOW IVP PRN (03:24)
[2020-01-18] MEDS: Amlodipine 5 MG TAB PO SCH (07:53)
[2020-01-18] MEDS: Carvedilol 3.125 MG TAB PO SCH ×2 (07:53→17:33)
[2020-01-18] MEDS: Minoxidil 2.5 MG TAB PO SCH (07:54)
[2020-01-18] MEDS: Calcium Acetate 667 MG CAP PO SCH ×2 (08:40→17:33)
[2020-01-18] MEDS: Losartan 25 MG TAB PO SCH (09:00)
[2020-01-18] MEDS: Famotidine/PF 20 mg/2ml Vial SLOW IVP SCH (09:00)
[2020-01-18] MEDS: Heparin 5,000 UNITS/ML VIAL SC SCH ×3 (09:00→20:38)
[2020-01-18] MEDS: hydrALAZINE 25 MG TAB PO SCH ×3 (09:00→20:38)
--- NOTE | 2020-01-18 11:26 | PRG ---
DATE OF SERVICE: 01/18/2020 SUBJECTIVE: Edward Oscar remains in the ICU. As per the nurse, he is no longer seizing. He is having an EEG performed. He was dialyzed yesterday. OBJECTIVE: VITAL SIGNS: Stable. Blood pressure 175/97, pulse 76, sats 100% on room air. CHEST: No wheezing. No crackles. CARDIAC: Normal S1 and S2. No gallops. ABDOMEN: No masses. ASSESSMENT AND PLAN: Chronic renal failure, seizure disorder. Pulmonary poon, I will follow while in the ICU. Nothing additional to offer. Job ID: [id number]
--- NOTE | 2020-01-18 12:01 | PQF ---
CLINICAL DOCUMENTATION CLARIFICATION FORM: Dear Dr. Tariq Date: 01/18/2020 Please exercise your independent, professional judgment in responding to the clarification form. Clinical indicators are provided on the bottom of this form for your review. Please check appropriate box(es): HEART FAILURE: A. ACUITY [ ] Acute [ XX ] Acute on Chronic [ ] Chronic B. TYPE: [ ] Systolic / HFrEF [ XX ] Diastolic / HFpEF [ ] Combined Systolic / Diastolic [ ] Other diagnosis [ ] Unable to determine In addition, please specify: Present on Admission (POA): [ XX ] Yes [ ] No [ ] Unable to determine For continuity of documentation, please document condition throughout progress notes and discharge summary. Thank You. CLINICAL INDICATORS - SIGNS / SYMPTOMS / LABS / RESULTS AND LOCATION IN EMR *ED 01/14: * Vital Signs: RR 14-22 * Transferred from [place] for evaluation of chest pain * CTA Chest with Contrast Date 01/15/2020: Global cardiomegaly is seen. There is a small pericardial effusion. ... There are small bilateral pleural effusions. *H&P 01/14 (Marciano): * Mildly elevated cardiac enzymes are likely secondary to impaired renal clearance. * Echocardiogram ordered * Pericardial effusion likely secondary to end-stage renal disease * Pleural effusion may be secondary to volume overload *PN 01/15 (Bradley): He did develop congestive heart failure and some degree of pericardial effusion and we felt that this could be related to his minoxidil. *ECHO 01/15 (EMR): * There is a small posterior pericardial effusion located next to the left ventricle. * Ejection fraction is visually estimated at 50-55% * Left ventricle size is moderately increased. * The left atrium is mildly dilated. *PN 01/16 (Bradley): The side effect of this minoxidil last time was due to development of pulmonary edema/pericardia effusion. Our plan is to max out fluid removal with dialysis. RISK FACTORS / RESULTS AND LOCATION IN EMR *ED 01/14: Hypertensive emergency *H&P 01/14 (Marciano): ESRD on hemodialysis, hypertension and HLD. TREATMENTS / RESULTS AND LOCATION IN EMR *H&P 01/14 (Marciano): Admit to the intensive care unit pulmonary/critical-care consultation Travis torres echocardiogram ordered *ECHO 01/15 (EMR) *PN 01/15 (Bradley): We will attempt to maximize fluid removal with his dialysis. Thanks, Kellie CDS/[employer] Signature: Kellie Arriola RN, CDS Phone #: [phone] [email or web address] This is a permanent part of the Medical Record [facility]
--- NOTE | 2020-01-18 13:42 | PDOC.HOSPP ---
- Subjective Encounter Date: 01/18/20 Subjective: NEUROLOGY PROGRESS NOTE Patient alert, awake and following commands . No acute events overnight. - Objective Vital Signs & Weight: Vital Signs (12 hours) Temp Pulse BP Pulse Ox 01/18/20 11:00 98.7 F 01/18/20 08:00 100 01/18/20 07:53 76 168/100 H 01/18/20 06:45 76 190/97 H 01/18/20 04:00 98.6 F 01/18/20 03:24 76 190/97 H Weight Weight 143 lb 8.335 oz Most Recent Monitor Data Heart Rate from ECG 79 NIBP 121/68 NIBP BP-Mean 115 Respiration from ECG 16 SpO2 100 I&O: 01/17/20 01/18/20 01/19/20 06:59 06:59 06:59 Intake Total 1486 1321.1 640 Output Total 150 Balance 1336 1321.1 640 Result Diagrams: 01/16/20 03:21 01/16/20 03:21 Additional Labs: Accuchecks 01/15/20 10:03 POC Glucose 131 H Radiology Reviewed by me: Yes EKG Reviewed by me: Yes Hospitalist ROS - Review of Systems Constitutional: denies: fever, chills, sweats, weakness, malaise, other Eyes: denies: pain, vision change, conjunctivae inflammation, eyelid inflammation, redness, other ENT: denies: ear pain, ear discharge, nose pain, nose discharge, nose congestion , mouth pain, mouth swelling, throat pain, throat swelling, other Respiratory: denies: cough, dry, shortness of breath, hemoptysis, SOB with excertion, pleuritic pain, sputum, wheezing, other Cardiovascular: denies: chest pain, palpitations, orthopnea, paroxysmal noc. dyspnea, edema, light headedness, other Gastrointestinal: denies: nausea, vomiting, abdominal pain, diarrhea, constipation, melena, hematochezia, other Genitourinary: denies: dysuria, frequency, incontinence, hematuria, retention, other Musculoskeletal: denies: neck pain, shoulder pain, arm pain, back pain, hand pain, leg pain, foot pain, other Neurological: reports: confusion. denies: weakness, numbness, incoordination, change in speech, seizures, other - Medication Medications: Active Medications Generic Name Dose Route Start Last Admin Trade Name Freq PRN Reason Stop Dose Admin Acetaminophen 650 mg 01/15/20 12:03 01/17/20 17:46 Tylenol PO 650 mg Q4H PRN Administration Headache/Fever/Mild Pain (1-3) Amlodipine Besylate 5 mg 01/16/20 09:00 01/18/20 07:53 Norvasc PO 5 mg DAILY JUAN A Administration Calcium Acetate 667 mg 01/15/20 17:00 01/17/20 17:47 Phoslo PO 667 mg BID-WM JUAN A Administration Carvedilol 3.125 mg 01/17/20 08:00 01/18/20 07:53 Coreg PO 3.125 mg BID-WM JUAN A Administration Clonidine 0.3 mg 01/16/20 12:00 01/16/20 11:26 Cfjgokiw-Ojg-3 TD 0.3 mg Q7D JUAN A Administration Diphenhydramine HCl 25 mg 01/15/20 12:06 01/17/20 18:14 Benadryl PO 25 mg Q6H PRN Administration Itching & Insomnia Heparin Sodium (Porcine) 5,000 units 01/15/20 15:00 01/17/20 21:13 Heparin SC Not Given TID JUAN A Hydralazine HCl 10 mg 01/15/20 12:06 01/18/20 06:45 Apresoline SLOW IVP 10 mg Q4H PRN Administration Hypertension Hydralazine HCl 100 mg 01/16/20 15:00 01/17/20 21:14 Apresoline PO 100 mg TID JUAN A Administration Levetiracetam 1,000 mg/ Device 100 mls @ 200 mls/hr 01/15/20 21:00 01/17/20 21:14 IVPB 100 mls BID JUAN A Administration Labetalol HCl 10 mg 01/15/20 12:06 01/18/20 03:24 Normodyne SLOW IVP 10 mg Q4H PRN Administration SBP Greater Than 180 Lidocaine HCl 15 ml 01/15/20 13:25 01/17/20 14:20 Xylocaine 2% Viscous SSW 15 ml Q4H PRN Administration Mouth Irritation Losartan Potassium 100 mg 01/16/20 09:00 01/17/20 11:47 Cozaar PO 100 mg DAILY JUAN A Administration Minoxidil 5 mg 01/18/20 09:00 01/18/20 07:54 Minoxidil PO 5 mg DAILY JUAN A Administration Ondansetron HCl 4 mg 01/15/20 12:03 01/17/20 12:06 Zofran IVP 4 mg Q6H PRN Administration Nausea/Vomiting - Exam General Appearance: awake alert Eye: PERRL ENT: normocephalic atraumatic Neck: supple Heart: RRR Respiratory: CTAB Gastrointestinal: soft Extremities: no cyanosis Skin: normal turgor Neurological: cranial nerve grossly intact, normal sensation to touch, no weakness, no focal deficits Musculoskeletal: normal tone Psychiatric: normal affect, normal behavior, A&O x 3, oriented to person, oriented to place, oriented to time Hosp A/P (1) AMS (altered mental status) Code(s): R41.82 - ALTERED MENTAL STATUS, UNSPECIFIED Status: Acute (2) Seizure Code(s): R56.9 - UNSPECIFIED CONVULSIONS Status: Acute (3) Anemia in ESRD (end-stage renal disease) Code(s): N18.6 - END STAGE RENAL DISEASE; D63.1 - ANEMIA IN CHRONIC KIDNEY DISEASE Status: Acute (4) Uremia Code(s): N19 - UNSPECIFIED KIDNEY FAILURE Status: Acute - Plan PT/OT, DVT proph w/SCDs 50 year old with ESRD and hypertensive emergency presented with new onset seizure. No family history or apparent risk factors for seizures. Most likely a provoked seizure in the setting of metabolic encephalopathy and hypertensive emergency. MRI brain reviewed which is negative for seizure activity. EEG reviewed which was negative for seizure activity Neurochecks every 4 hours. PT/OT Continue medical management per primary team. MRI brain and EEG were negative, so no need for anticonvulsant. Plan discussed with the patient
--- NOTE | 2020-01-18 14:47 | PDOC.HOSPP ---
- Subjective Subjective: Seen and examined in the intensive care unit. He is finishing his EEG. No new complaints today. He is alert and talking in full sentences. Blood pressure has been difficult to control at night, medications are being adjusted. Time was given for questions, all answered in detail. - Objective Vital Signs & Weight: Vital Signs (12 hours) Temp Pulse BP Pulse Ox 01/18/20 11:00 98.7 F 01/18/20 08:00 100 01/18/20 07:53 76 168/100 H 01/18/20 06:45 76 190/97 H 01/18/20 04:00 98.6 F 01/18/20 03:24 76 190/97 H Weight Weight 143 lb 8.335 oz Most Recent Monitor Data Heart Rate from ECG 89 NIBP 114/61 NIBP BP-Mean 115 Respiration from ECG 16 SpO2 100 I&O: 01/17/20 01/18/20 01/19/20 06:59 06:59 06:59 Intake Total 1486 1321.1 640 Output Total 150 Balance 1336 1321.1 640 Result Diagrams: 01/16/20 03:21 01/16/20 03:21 Additional Labs: Accuchecks 01/15/20 10:03 POC Glucose 131 H Radiology Reviewed by me: Yes Hospitalist ROS - Review of Systems All other systems reviewed; all pertinent +/- noted in HPI/Subj - Medication Medications: Active Medications Generic Name Dose Route Start Last Admin Trade Name Freq PRN Reason Stop Dose Admin Acetaminophen 650 mg 01/15/20 12:03 01/17/20 17:46 Tylenol PO 650 mg Q4H PRN Administration Headache/Fever/Mild Pain (1-3) Amlodipine Besylate 5 mg 01/16/20 09:00 01/18/20 07:53 Norvasc PO 5 mg DAILY JUAN A Administration Calcium Acetate 667 mg 01/15/20 17:00 01/17/20 17:47 Phoslo PO 667 mg BID-WM JUAN A Administration Carvedilol 3.125 mg 01/17/20 08:00 01/18/20 07:53 Coreg PO 3.125 mg BID-WM JUAN A Administration Clonidine 0.3 mg 01/16/20 12:00 01/16/20 11:26 Eebshymb-Dkr-9 TD 0.3 mg Q7D JUAN A Administration Diphenhydramine HCl 25 mg 01/15/20 12:06 01/17/20 18:14 Benadryl PO 25 mg Q6H PRN Administration Itching & Insomnia Heparin Sodium (Porcine) 5,000 units 01/15/20 15:00 01/17/20 21:13 Heparin SC Not Given TID JUAN A Hydralazine HCl 10 mg 01/15/20 12:06 01/18/20 06:45 Apresoline SLOW IVP 10 mg Q4H PRN Administration Hypertension Hydralazine HCl 100 mg 01/16/20 15:00 01/17/20 21:14 Apresoline PO 100 mg TID JUAN A Administration Levetiracetam 1,000 mg/ Device 100 mls @ 200 mls/hr 01/15/20 21:00 01/17/20 21:14 IVPB 100 mls BID JUAN A Administration Labetalol HCl 10 mg 01/15/20 12:06 01/18/20 03:24 Normodyne SLOW IVP 10 mg Q4H PRN Administration SBP Greater Than 180 Lidocaine HCl 15 ml 01/15/20 13:25 01/17/20 14:20 Xylocaine 2% Viscous SSW 15 ml Q4H PRN Administration Mouth Irritation Losartan Potassium 100 mg 01/16/20 09:00 01/17/20 11:47 Cozaar PO 100 mg DAILY JUAN A Administration Minoxidil 5 mg 01/18/20 09:00 01/18/20 07:54 Minoxidil PO 5 mg DAILY JUAN A Administration Ondansetron HCl 4 mg 01/15/20 12:03 01/17/20 12:06 Zofran IVP 4 mg Q6H PRN Administration Nausea/Vomiting - Exam General Appearance: NAD, awake alert Eye: anicteric sclera ENT: normocephalic atraumatic, moist mucosa Neck: supple, symmetric, no lymphadenopathy Heart: RRR, no murmur, no gallops, no rubs Respiratory: CTAB, no wheezes, no rales, no ronchi, normal chest expansion Gastrointestinal: soft, non-tender, no guarding, no rigidity Extremities: no clubbing, no edema Skin: no lesions, no rashes Neurological: cranial nerve grossly intact, no focal deficits Musculoskeletal: generalized weakness Psychiatric: normal affect, normal behavior, A&O x 3 Hosp A/P (1) Seizure Code(s): R56.9 - UNSPECIFIED CONVULSIONS Status: Acute (2) AMS (altered mental status) Code(s): R41.82 - ALTERED MENTAL STATUS, UNSPECIFIED Status: Acute (3) Tongue biting Code(s): K14.8 - OTHER DISEASES OF TONGUE Status: Acute (4) Anemia of renal disease Code(s): D63.1 - ANEMIA IN CHRONIC KIDNEY DISEASE Status: Chronic (5) ESRD (end stage renal disease) on dialysis Code(s): N18.6 - END STAGE RENAL DISEASE; Z99.2 - DEPENDENCE ON RENAL DIALYSIS Status: Chronic (6) Hypertension Code(s): I10 - ESSENTIAL (PRIMARY) HYPERTENSION Status: Chronic - Plan Plan: intensive care unit, stable for D/g to Med/tel critical-care consultation, recommendations appreciated neurology consultation, recommendations appreciated nephrology consultation, recommendations appreciated D/c cardene drip for titratable blood pressure control Adjusting home blood pressure medications, adding minoxidil Completed EEG 01/18/2020 - no overt spike and wave pattern antiepileptic drug not indicated per neurology Ativan PRN seizure seizure precautions passed swallow evaluation, advancing diet MRI the brain demonstrating posterior reversible encephalopathy syndrome which fits the picture of his uncontrolled blood pressure CT head negative urinary toxicology negative blood-alcohol level negative mildly elevated cardiac enzymes may be secondary to impaired renal clearance and profound hypertension echocardiogram elevated D dimer, negative CT angiography of the chest for pulmonary embolism, please see full report for details pericardial effusion may be secondary to end-stage renal disease pleural fusions may be secondary volume overload COVID negative blood pressure control blood sugar control G.I. prophylaxis DVT prophylaxis
--- NOTE | 2020-01-18 19:52 | PRG ---
DATE OF SERVICE: 01/18/2020 SUBJECTIVE: Mr. Mundo Oscar is a 50-year-old male with ESRD and currently on maintenance hemodialysis. He was initially admitted for chest pain. He was also found to have labile hypertension. We have decided to restart back minoxidil due to the poorly-controlled blood pressure. He was started on 5 mg tablet once a day starting this morning. Previously, minoxidil was discontinued due to the development of CHF and pericardial effusion. Our plan is to attempt to max out fluid removal to prevent recurrence of this CHF and minimize pericardial effusion. No new complaints today. OBJECTIVE: VITAL SIGNS: Currently, blood pressure is now 132/79, heart rate 83, respiratory rate 18, pulse ox 100% GENERAL: Noted to be awake, alert, comfortable, not in overt distress. SKIN: Adequate turgor. HEENT: He has pinkish conjunctivae. Anicteric sclerae. NECK: No neck mass. No carotid bruits. No JVD. CHEST: No deformities. LUNGS: Clear breath sounds. HEART: Normal sinus rhythm. No murmur. No gallops. No rubs. ABDOMEN: Globular, soft, and nontender. No masses. EXTREMITIES: No edema. No deformities. MEDICATIONS: Medications of January 18, 2020, were reviewed. LABORATORY DATA: Laboratories of January 16, 2020: White count 6.6, hemoglobin 10. Sodium 138, potassium 4.2, chloride 97, carbon dioxide 29, BUN 49, creatinine 9.99, calcium 8. ASSESSMENT AND PLAN: 1. Labile hypertension, improved with addition of minoxidil. Continue current antihypertensive regimen, maxing out fluid removal with dialysis. 2. End-stage renal disease. We will continue current Friday, Friday, and Friday hemodialysis regimen. As previously mentioned, we will be more aggressive with fluid removal with this patient. 3. Borderline anemia. Continue to observe. We will be rechecking CBC and basic metabolic panel in a.m. Job ID: [id number]
[2020-01-18] MEDS: levETIRAcetam In NaCl (Iso-Os) 1,000 MG in Premix Bag 1 BAG IVPB SCH (20:07)
[2020-01-19 05:08] LABS: #Eosinphils 0.2 thou/uL (0.0-0.7); #Lymphocytes 1.3 thou/uL (1.20-3.40); #Monocytes 0.2 thou/uL (0.11-0.59); %Basophils 0.5 % (0.0-1.0); %Eosinophils 6.4 % (0.0-10.0); %Lymphocytes 34.9 % (21.0-51.0); %Monocytes 4.8 % (0.0-10.0); %Neutrophils 53.3 % (42.0-75.0); Hemoglobin 10.1 g/dL (14.0-18.0); Mean Corpuscular HGB CONC 33.3 g/dL (32.0-36.0); Mean Corpuscular Hemoglobin 34.1 pg (27.0-31.0); Mean Platelet Volume 9.4 fL (7.4-10.4); Platelet Count 95 thou/uL (130-400); RBC Distribution Width 12.3 % (11.5-14.5); Red Blood Cell (RBC) Count 2.97 mill/uL (4.70-6.10); White Blood Cell (WBC) Count 3.7 thou/uL (4.8-10.8)
[2020-01-19 05:15] LABS: Anion Gap 17 mmol/L (10-20); BUN (Urea Nitrogen) 49 mg/dL (8.9-20.6); Calc. Creatinine Clearance 7 mL/min (70-130); Calcium 8.3 mg/dL (7.8-10.44); Carbon Dioxide 26 mmol/L (22-29); Chloride 97 mmol/L (98-107); Estimated GFR-MDRD 4; Glucose 100 mg/dL (70-105); Sodium 136 mmol/L (136-145)
--- NOTE | 2020-01-19 09:38 | PRG ---
DATE OF SERVICE: 01/19/2020 SERVICE: Renal Medicine. SUBJECTIVE: Mr. Oscar is a 50-year-old male, being followed by the Renal Service for management of his ESRD. He is currently undergoing hemodialysis today. My plan is to continue Friday, Friday, and Friday dialysis. In addition, he has been having labile hypertension. We have reintroduced minoxidil with this patient. This was discontinued a month ago due to development of pericardial effusion and CHF. I did explain to the patient he needs to allow the dialysis nurse pull out his fluid. He will now comply with fluid removal. In addition, we will still be adjusting his BP medications. No new complaints today. No chest pain or shortness of breath. OBJECTIVE: VITAL SIGNS: Blood pressure 117/70, heart rate 80, respiratory rate 16, temperature 98, O2 saturation 97%. GENERAL: The patient is awake, alert, comfortable, not in distress. SKIN: Adequate turgor. HEENT: Pinkish conjunctivae. Anicteric sclerae. NECK: No neck mass. No carotid bruits. No JVD. CHEST: No deformities. LUNGS: Clear breath sounds. HEART: Normal sinus rhythm. No murmur. No gallops. No rubs. ABDOMEN: Globular, soft, nontender. No masses. EXTREMITIES: No edema. No deformities. MEDICATIONS: On January 19, 2020, were reviewed. LABORATORY DATA: On January 19, 2020; white count 3.7, hemoglobin 10.1. Sodium 136, potassium 4, chloride 97, carbon dioxide 26, BUN 49, creatinine 12, glucose 100, calcium 8.3. ASSESSMENT AND PLAN: 1. Labile hypertension. Blood pressure is much improved. He is now running on the low side. My plan is to discontinue his hydralazine and simply continue the other blood pressure medications. This will include a new minoxidil at 5 mg once a day and in addition, I have decided also to continue the current clonidine patch TTS-3 every 7 days. His losartan will also be discontinued and we will observe him how his blood pressure is. 2. End-stage renal disease, stable. Continue Friday, Friday, and Friday hemodialysis. Again, we will max out fluid removal as tolerated by the patient. Job ID: [id number]
--- NOTE | 2020-01-19 11:11 | EEG ---
DATE OF SERVICE: 01/18/2020 ATTENDING PHYSICIAN: Katherin Smyth MD. This EEG was performed using 24-channel [employer] video digital EEG machine with 24-disk electrodes. This was an extended 2-hour 10-minute of inpatient video EEG recording. Digital analysis the EEG was done for spike and seizure detection, which revealed no abnormalities. BACKGROUND: There was a nonsustained posterior background rhythm of 8.5 Hz, minimal reactivity seen with eye opening and closure. HYPERVENTILATION: Not performed. PHOTIC STIMULATION: No significant response seen with photic stimulation. SLEEP: Drowsiness and sleep were observed during most of the recording. EEG DIAGNOSIS: Occasional irregular theta activity seen during the recording. CLINICAL INTERPRETATION: This EEG is consistent with mild generalized nonspecific cerebral dysfunction. No ictal or interictal epileptiform abnormalities seen during the recording. Job ID: [id number]
--- NOTE | 2020-01-19 11:22 | EEG ---
Please see EEG report Delete this document DATE OF SERVICE: 01/18/2020 This EEG was performed using 24 channel DICTATION ENDS HERE Job ID: [id number] MTDD
[2020-01-19 12:57] VITALS: BP 162/86; TEMP 98.6
[2020-01-19] MEDS: hydrALAZINE 25 MG TAB PO SCH (12:58)
[2020-01-19] MEDS: Losartan 25 MG TAB PO SCH (12:58)
[2020-01-19] MEDS: Minoxidil 2.5 MG TAB PO SCH (13:15)
[2020-01-19] MEDS: Calcium Acetate 667 MG CAP PO SCH (13:15)
[2020-01-19] MEDS: Carvedilol 3.125 MG TAB PO SCH (13:15)
[2020-01-19] MEDS: Amlodipine 5 MG TAB PO SCH (13:15)
[2020-01-19] MEDS: Famotidine/PF 20 mg/2ml Vial SLOW IVP SCH (13:15)
[2020-01-19] MEDS: Heparin 5,000 UNITS/ML VIAL SC SCH (13:15)
--- NOTE | 2020-01-19 22:56 | DIS ---
DATE OF ADMISSION: 01/15/2020 DATE OF DISCHARGE: 01/19/2020 REASON FOR HOSPITALIZATION: Altered mental status. PROCEDURES PERFORMED AND TREATMENTS RENDERED: Mr. Edward Oscar is a pleasant 50-year-old gentleman who presented to [facility] on [facility]2020 with altered mental status, please see full history and physical for details. The patient was admitted to the intensive care unit, please see full consultation notes and progress notes from marketing designer for management. With the patient having altered mental status, there was concern of seizure-type activity seen by EMS in the field. The patient had Ativan and seizure-type activity was reported as aborted. By the time I evaluated the patient in the intensive care unit, he was postictal and sedated from Ativan and he was unable to provide me with much meaningful information. The patient does have a past medical history of end-stage renal disease and he follows up with Dr. Bradley for Nephrology. Dr. Bradley was consulted and the patient had appropriate hemodialysis throughout his hospitalization, please see full consultation notes and progress notes from Dr. Bradley for details. The patient's blood pressure is difficult to control, this has been chronic for him, he has been on minoxidil in the past. Minoxidil has been stopped and because of this, the patient's blood pressure was greater than 200 and he required IV titratable drip to control his blood pressure in the intensive care unit. With his confusion, I added an MRI of the brain, please see full report for details, there were findings concerning for posterior reversible encephalopathy syndrome. This is consistent with his clinical picture of severely elevated blood pressure greater than 200, once his blood pressure was controlled the patient's mentation returned to normal. In the acute care hospital, he had no seizure-type activity. A Neurology consultation was requested, please see full consultation notes and progress notes for details. Neurology recommending stopping antiepileptic therapy and this was done per Neurology. The patient continued to improve throughout his hospitalization and was successfully weaned off the drip for blood pressure control, and he was transferred to the medical unit with telemetry. An electroencephalogram was performed and was found to be negative for overt seizure spike and wave morphology. When the blood pressure was controlled and he was euvolemic from hemodialysis, he was recommended safe for discharge by all specialists with close followup in the outpatient setting. The patient's blood pressure medications have been sent to his pharmacy for his convenience. The patient recommended to take all blood pressure medications as directed-if he is unable to take these medications, he is recommended to return to acute care hospital immediately as he has demonstrated that elevated blood pressure is a profound risk for him. The patient recommended to follow up with primary care physician and all specialists in the next 1 to 3 weeks. CONDITION ON DISCHARGE: Stable. DISCHARGE MEDICATIONS: Please see full discharge medication record for details. SPECIFIC INSTRUCTIONS FOR THE PATIENT/FAMILY: 1. The patient recommended to take all medications as directed-explicitly this is blood pressure medication-he is recommended to return to acute care hospital immediately if he is unable to take any of these medications for any reason. 2. The patient recommended to keep a blood pressure log with two readings per day over the next 2 weeks. He is to bring this blood pressure log with him to every doctor's appointment. 3. The patient recommended to follow up with primary care physician in the next 5 to 7 days. 4. The patient recommended to follow up with Dr. Bradley in the Outpatient Clinic in addition to the dialysis clinic in the next two days. 5. The patient recommended to follow up with Neurology in the next 2 to 3 weeks. 6. The patient recommended to follow up with all other specialists as directed. 7. The patient recommended to return to acute care hospital immediately if he is unable to comply with all of the above-mentioned steps. 8. The patient recommended to return to acute care hospital immediately if signs or symptoms return, worsen, or any other new symptoms occur. TIME SPENT: Greater than 34 minutes spent coordinating care and discharge process. More than 50% of this time was spent directly [id number] with the patient and her daughter at bedside. Job ID: [id number] [facility]
== END 2020-01-19 14:22 | disposition home or self-care (01) | DRG 70 ==
LOC: ERS 09:54 → CCU 14:13 → 2SE 01-18 19:22
PROVIDERS: ADMIT Internal Medicine; ATTEND Internal Medicine
PROC: 5A1D70Z Performance of Urinary Filtration, Intermittent, Less than 6 Hours Per Day (ICD-10-PCS; principal; 2020-01-19)
DX: I67.83 Posterior reversible encephalopathy syndrome (principal); I50.33 Acute on chronic diastolic (congestive) heart failure; N18.6 End stage renal disease; I16.1 Hypertensive emergency; I31.3 Pericardial effusion (noninflammatory); I13.2 Hypertensive heart and chronic kidney disease with heart failure and with stage 5 chronic kidney disease, or end stage renal disease; Z20.828 Contact with and (suspected) exposure to other viral communicable diseases; E78.5 Hyperlipidemia, unspecified; D63.1 Anemia in chronic kidney disease; G93.41 Metabolic encephalopathy; Z88.1 Allergy status to other antibiotic agents; Z99.2 Dependence on renal dialysis; Z79.899 Other long term (current) drug therapy; Z28.21 Immunization not carried out because of patient refusal
CPT/HCPCS: 36415; 36416; 36600; 51701; 70450; 70551; 80048; 80306; 80307; 81003; 81015; 82140; 82553; 82805; 84443; 85025; 90935; 93005; 93306; 95712; 95816; 95819; 95957; 96361; 96365; 96366; 96367; 96375; G0257; J0360; J1644; J1953; J2405; J7050; Q0163; S0028; U0002